=== PATIENT | male | born 1970 | race Caucasian/White ===

== ENCOUNTER 2017-03-14 21:40 | Emergency (ER) | payer OTHER ==
[2017-03-14] MEDS ORDERED: Diphtheria,Pertussis(Acell),Tetanus Vaccine 0.5 ML Syringe ONE (21:48)
[2017-03-14] MEDS ORDERED: Lidocaine 1% with EPINEPHrine 1:100,000 20 ML MDV ONE (21:48)
[2017-03-14] MEDS ORDERED: Bacitracin/Neomycin/Polymyxin B Oint 0.9 GM U/D Packet ONE (22:00)
[2017-03-14 22:11] VITALS: BP 136/94
[2017-03-14] MEDS ORDERED: Bacitracin/Neomycin/Polymyxin B Oint 0.9 GM U/D Packet TOP ONE (22:11)
[2017-03-14] MEDS ORDERED: Bacitracin/Neomycin/Polymyxin B Ophth Oint 3.5 GM Tube STA (22:11)
[2017-03-14] MEDS ORDERED: Lidocaine 2% with EPINEPHrine 1:100,000 20 ML MDV INJECT ONE (22:11)
--- NOTE | 2017-03-14 22:14 | EDM.PDOC ---
ED HPI GENERAL MEDICAL PROBLEM - General Chief Complaint: General Stated Complaint: laceration Time Seen by Provider: 03/14/17 21:50 Source of Information: Reports: Patient - History of Present Illness INITIAL COMMENTS - FREE TEXT/NARRATIVE: 3.5 cm laceration of the chin. Onset: Sudden Duration: Minutes: Location: Reports: Face Severity: Moderate Improves with: Reports: None Worsens with: Reports: None - Related Data Allergies Allergy/AdvReac Type Severity Reaction Status Date / Time No Known Allergies Allergy Verified 03/14/17 21:50 Home Meds: Home Meds . [No Known Home Meds] 03/14/17 [History] ED ROS GENERAL - Review of Systems Review Of Systems: ROS reveals no pertinent complaints other than HPI. Constitutional: Reports: No Symptoms HEENT: Reports: No Symptoms Respiratory: Reports: No Symptoms ED EXAM, GENERAL - Physical Exam Exam: See Below Free Text/Narrative:: 3.5 cm full thickness laceration of the chin, wound appears clean Exam Limited By: No Limitations General Appearance: Alert Ears: Normal External Exam Nose: Normal Inspection Throat/Mouth: Normal Inspection Head: Atraumatic Neck: Normal Inspection Cardiovascular: Normal Peripheral Pulses GI/Abdominal: Normal Bowel Sounds Rectal (Males) Exam: Normal Exam Back Exam: Normal Inspection Extremities: Normal Inspection Skin Exam: Wound/Incision Front/Back Body Diagram: 1 - 3.5 cm laceration ED GENERAL MEDICAL PROCEDURES - Laceration/Wound Repair Left Lower Anterior Sides of Face Lac/wound length in cm: 3.5 Appearance: Clean Anesthetic Type: Local Local Anesthesia - Lidocaine (Xylocaine): 1% With EPI Local Anesthetic Volume: 5cc Skin Prep: Providone-Iodine (Betadine) Closed with: Sutures Suture Size: 4-0 Suture Type: Nylon Tetanus Status Addressed: Yes Complications: No Progress/Comments: 7 stitches used to close, tolerated well. wound care instructions given and verbal understanding given. Course - Orders/Labs/Meds Meds: Medications Discontinued Medications Generic Name Dose Route Start Last Admin Trade Name Freq PRN Reason Stop Dose Admin Diphtheria/Tetanus/Acell Pertussis Confirm 03/14/17 21:48 Adacel Administered 03/14/17 21:49 Dose 0.5 ml .ROUTE .STK-MED ONE Lidocaine/Epinephrine Confirm 03/14/17 21:48 Xylocaine 1% With Epinephrine 1:100,000 Administered 03/14/17 21:49 Dose 20 ml .ROUTE .STK-MED ONE Neomycin/Polymyxin/Bacitracin Confirm 03/14/17 22:00 Triple Antibiotic Oint Administered 03/14/17 22:01 Dose 1 each .ROUTE .STK-MED ONE Departure - Departure Time of Disposition: 22:14 Disposition: Home, Self-Care 01 Condition: Good Clinical Impression: Laceration - Discharge Information Forms: ED Department Discharge Additional Instructions: eep wound clean and dry. have sutures removed in 7 to 10 days.
== END 2017-03-14 22:30 | disposition home or self-care (01) ==
LOC: CC.ED 21:40
DX: S01.81XA Laceration without foreign body of other part of head, initial encounter (principal); Z23 Encounter for immunization; X58.XXXA Exposure to other specified factors, initial encounter
CPT/HCPCS: 12013; 90471; 90715; 99282